=== PATIENT | female | born 1970 | race Caucasian/White ===

== ENCOUNTER → 2017-05-06 | Outpatient (REF) | payer OTHER ==
[2017-05-06 20:52] LABS: ALBUMIN 3.9 GM/DL (3.2-5.2); ALBUMIN/GLOBULIN RATIO 1.39 (1.00-1.93); ALKALINE PHOSPHATASE 46 U/L (45-117); ALT/SGPT 33 U/L (12-78); ANION GAP 7 MEQ/L (8-16); AST/SGOT 19 U/L (15-37); BILIRUBIN,TOTAL 0.2 MG/DL (0.2-1.0); BLOOD UREA NITROGEN 17 MG/DL (7-18); CALCIUM LEVEL 8.1 MG/DL (8.5-10.1); CARBON DIOXIDE LEVEL 29 MEQ/L (21-32); CHLORIDE LEVEL 103 MEQ/L (98-107); CHOLESTEROL LEVEL 194 MG/DL (<200); GLOMERULAR FILTRATION RATE > 60.0 (>58); GLUCOSE, FASTING 94 MG/DL (70-105); POTASSIUM SERUM 3.6 MEQ/L (3.5-5.1); SODIUM LEVEL 139 MEQ/L (136-145); TOTAL PROTEIN 6.7 GM/DL (6.4-8.2); TRIGLYCERIDES LEVEL 511 MG/DL (<150)
== END ==
LOC: M SFHCCLAY 10:47
PROVIDERS: ATTEND Family Medicine
DX: I10 Essential (primary) hypertension (principal); I44.0 Atrioventricular block, first degree; E78.2 Mixed hyperlipidemia

== ENCOUNTER → 2018-04-21 | Outpatient (REF) | payer OTHER | LOC: M SFHCCLAY 09:08 | DX: Z12.4 Encounter for screening for malignant neoplasm of cervix (principal) ==

== ENCOUNTER → 2018-05-12 | Outpatient (CLI) | payer OTHER | LOC: M CLY 08:07 | DX: R93.6 Abnormal findings on diagnostic imaging of limbs (principal); M25.512 Pain in left shoulder | CPT/HCPCS: 73030 ==

== ENCOUNTER → 2018-05-12 | Outpatient (REF) | payer OTHER ==
[2018-05-12 12:44] LABS: ALBUMIN/GLOBULIN RATIO 1.29 (1.00-1.93); ALKALINE PHOSPHATASE 59 U/L (45-117); ALT/SGPT 53 U/L (12-78); ANION GAP 6 MEQ/L (8-16); AST/SGOT 25 U/L (7-37); BILIRUBIN,TOTAL 0.3 MG/DL (0.2-1.0); BLOOD UREA NITROGEN 13 MG/DL (7-18); CALCIUM LEVEL 9.2 MG/DL (8.5-10.1); CARBON DIOXIDE LEVEL 31 MEQ/L (21-32); CHLORIDE LEVEL 103 MEQ/L (98-107); CHOLESTEROL LEVEL 213 MG/DL (<200); CHOLESTEROL RISK RATIO 5.325 (<5); CREATININE FOR GFR 0.65 MG/DL (0.55-1.30); GLOMERULAR FILTRATION RATE > 60.0 (>58); GLUCOSE, FASTING 94 MG/DL (70-100); HDL CHOLESTEROL 40 MG/DL (>40); NON-HDL-C 173 MG/DL; POTASSIUM SERUM 3.9 MEQ/L (3.5-5.1); SODIUM LEVEL 140 MEQ/L (136-145); TOTAL PROTEIN 7.1 GM/DL (6.4-8.2); TRIGLYCERIDES LEVEL 430 MG/DL (<150)
== END ==
LOC: M SFHCCLAY 07:52
DX: E78.2 Mixed hyperlipidemia (principal)
CPT/HCPCS: 80053

== ENCOUNTER → 2019-04-27 | Outpatient (REF) | payer OTHER | LOC: M SFHCCLAY 17:00 | PROVIDERS: ATTEND Nurse Practitioner Family | DX: Z12.4 Encounter for screening for malignant neoplasm of cervix (principal) ==

== ENCOUNTER → 2019-05-25 | Outpatient (REF) | payer OTHER ==
[2019-05-25 13:11] LABS: BASO % 0.7 % (0.0-1.0); EOS # 0.3 10^3/uL (0.0-0.5); EOS % 5.2 % (0.0-3.0); HEMATOCRIT 40.1 % (36.0-47.0); HEMOGLOBIN 13.4 g/dl (12.0-15.5); LYMPH # 1.7 10^3/uL (1.5-5.0); LYMPH % 30.1 % (24.0-44.0); MEAN CORPUSCULAR HEMOGLOBIN 29.9 pg (27.0-33.0); MEAN CORPUSCULAR HGB CONC 33.4 g/dl (32.0-36.5); MEAN CORPUSCULAR VOLUME 89.5 fl (80.0-96.0); MONO # 0.5 10^3/uL (0.0-0.8); MONO % 8.1 % (0.0-5.0); NEUTROPHILS # 3.2 10^3/uL (1.5-8.5); NEUTROPHILS % 55.4 % (36.0-66.0); PLATELET COUNT, AUTOMATED 275 10^3/uL (150-450); RED BLOOD COUNT 4.48 10^6/uL (4.00-5.40); WHITE BLOOD COUNT 5.8 10^3/uL (4.0-10.0)
[2019-05-25 13:33] LABS: ALBUMIN 4.1 GM/DL (3.2-5.2); ALT/SGPT 36 U/L (12-78); BILIRUBIN,TOTAL 0.4 MG/DL (0.2-1.0); BLOOD UREA NITROGEN 15 MG/DL (7-18); C REACTIVE PROTEIN QUANTITATIV < 0.30 MG/DL (0.00-0.30); CARBON DIOXIDE LEVEL 32 MEQ/L (21-32); CHLORIDE LEVEL 99 MEQ/L (98-107); CHOLESTEROL LEVEL 226 MG/DL (<200); CHOLESTEROL RISK RATIO 5.512 (<5); CREATININE FOR GFR 0.61 MG/DL (0.55-1.30); FOLATE 11.7 NG/ML (>5.4); GLOMERULAR FILTRATION RATE > 60.0 (>58); GLUCOSE, FASTING 87 MG/DL (70-100); HDL CHOLESTEROL 41 MG/DL (>40); MAGNESIUM LEVEL 2.2 MG/DL (1.8-2.4); NON-HDL-C 185 MG/DL; POTASSIUM SERUM 3.5 MEQ/L (3.5-5.1); RHEUMATOID FACTOR QUANT < 10.0 IU/ML (<15.0); SODIUM LEVEL 138 MEQ/L (136-145); THYROID STIMULATING HORMONE 0.808 uIU/ML (0.358-3.740); TOTAL PROTEIN 6.9 GM/DL (6.4-8.2); TRIGLYCERIDES LEVEL 522 MG/DL (<150)
[2019-05-25 13:52] LABS: ERYTHROCYTE SEDIMENTATION RATE 6 mm/hr (0-20)
[2019-05-25 15:44] LABS: VITAMIN B12 LEVEL 581 PG/ML (247-911)
[2019-05-27 00:06] LABS: ANA (HEP2) Negative (.); CYCLIC CITRULLINATED PEPTIDE 8 units (0-19); Lyme Disease IgG/IgM Antibodie <0.91 ISR (0.00-0.90); Lyme Disease IgM Ab Quantitati <0.80 index (0.00-0.79)
== END ==
LOC: M SFHCCLAY 08:57
PROVIDERS: ATTEND Family Medicine
DX: E78.2 Mixed hyperlipidemia (principal); I10 Essential (primary) hypertension; M25.512 Pain in left shoulder; M25.562 Pain in left knee; R20.2 Paresthesia of skin; R20.0 Anesthesia of skin; M25.50 Pain in unspecified joint

== ENCOUNTER → 2019-05-25 | Outpatient (CLI) | payer OTHER ==
--- NOTE | 2019-05-25 16:20 | REP ---
Five views left knee: 05/25/2019. Indication: Left knee pain. Comparison: None. Findings: There is no acute fracture, subluxation or dislocation. There is no evidence of significant joint effusion. Joint space height is maintained. Impression: No acute fracture. Electronically Signed by James Rosado DO 05/25/2019 04:11 P
== END ==
LOC: M CLY 09:10
PROVIDERS: ATTEND Family Medicine
DX: M25.562 Pain in left knee (principal)

== ENCOUNTER → 2019-12-17 | Outpatient (CLI) | payer OTHER ==
[~2019-12-17] MED LIST: PROHANCE 279.3MG/ML 15ML VIAL As Ordered ONE
--- NOTE | 2019-12-18 09:06 | REP ---
MRI STUDY OF THE BRAIN WITHOUT AND WITH IV CONTRAST: HISTORY: Bilateral facial numbness. Visual issues. Skin anesthesia. No comparison brain imaging. Gadolinium enhancement dose is 13.8 mL of intravenous ProHance. TECHNIQUE: Axial and sagittal imaging planes are utilized for T1- and T2-weighted scans. Sequences include spin-echo, fast spin echo, FLAIR, and diffusion weighted sequences. MRI FINDINGS: No bony calvarial lesion is seen. Craniocervical junction and upper cervical cord are normal in appearance. There is no MR evidence of significant paranasal sinus disease. No intraorbital abnormality is seen. The deep facial soft tissues are unremarkable. On turbo spin echo T2 and post rick images, there is evidence of a rounded flow void in the region of the anterior communicating artery just to the left of midline, 4 mm in diameter. This is suspicious for a possible umaña aneurysm. This merits further evaluation. No other vascular abnormality is seen. Diffusion weighted scans show no evidence of restricted diffusion to suggest acute ischemia. There is no evidence of intracranial mass or extra-axial fluid collection. There are a few scattered subcortical and periventricular white matter foci in the frontal lobes consistent with minimal small vessel changes. These are nonspecific and can be seen in migraine patients, less likely demyelinating disease. On postcontrast images, there is enhancement in normal vasculature. No abnormal intracranial contrast enhancement is seen. IMPRESSION: 1. 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 Recommend MR angiography of the brain. 2. Nonspecific scattered foci of T2 hyperintensity in the subcortical and periventricular white matter likely small vessel changes. 3. Otherwise negative MRI study of the brain without and with IV contrast. Electronically Signed by Carlos Thomas MD 12/18/2019 09:13 A
== END ==
LOC: M RAD 15:42
PROVIDERS: ATTEND Family Medicine
DX: R20.0 Anesthesia of skin (principal); M25.50 Pain in unspecified joint; H53.9 Unspecified visual disturbance; R90.89 Other abnormal findings on diagnostic imaging of central nervous system
CPT/HCPCS: 70553; A9576

== ENCOUNTER → 2019-12-25 | Outpatient (REF) | payer OTHER ==
[2019-12-25 17:20] LABS: BLOOD UREA NITROGEN 17 MG/DL (7-18); CALCIUM LEVEL 9.1 MG/DL (8.5-10.1); CARBON DIOXIDE LEVEL 31 MEQ/L (21-32); CHLORIDE LEVEL 103 MEQ/L (98-107); CREATININE FOR GFR 0.67 MG/DL (0.55-1.30); GLOMERULAR FILTRATION RATE > 60.0 (>58); GLUCOSE, FASTING 102 MG/DL (70-100); POTASSIUM SERUM 3.5 MEQ/L (3.5-5.1); SODIUM LEVEL 141 MEQ/L (136-145)
== END ==
LOC: M SFHCCLAY 13:04
PROVIDERS: ATTEND Family Medicine
DX: I67.1 Cerebral aneurysm, nonruptured (principal)

== ENCOUNTER → 2020-04-25 | Outpatient (CLI) | payer OTHER ==
--- NOTE | 2020-05-02 09:53 | REP ---
LEFT ELBOW SERIES: 4-VIEWS HISTORY: Left elbow pain. FINDINGS: Four views of the left elbow demonstrate normal alignment of the radiocapitellar and ulnotrochlear articulations. There is no evidence of joint effusion or erosive change. No soft tissue abnormality. IMPRESSION: Negative radiographs of the left elbow. MTDD
== END ==
LOC: M CLY 09:48
PROVIDERS: ATTEND Physician Assistant
DX: M25.522 Pain in left elbow (principal)

== ENCOUNTER → 2020-05-02 | Outpatient (REF) | payer OTHER | LOC: M SFHCCLAY 09:51 | PROVIDERS: ATTEND Nurse Practitioner Family | DX: Z01.419 Encounter for gynecological examination (general) (routine) without abnormal findings (principal) ==

== ENCOUNTER → 2020-05-30 | Outpatient (REF) | payer OTHER ==
[2020-05-30 16:11] LABS: BASO % 0.6 % (0.0-1.0); EOS # 0.2 10^3/uL (0.0-0.5); HEMOGLOBIN 12.9 g/dl (12.0-15.5); LYMPH # 1.8 10^3/uL (1.5-5.0); LYMPH % 32.7 % (24.0-44.0); MEAN CORPUSCULAR HEMOGLOBIN 29.8 pg (27.0-33.0); MEAN CORPUSCULAR HGB CONC 33.1 g/dl (32.0-36.5); MEAN CORPUSCULAR VOLUME 90.1 fl (80.0-96.0); MONO # 0.4 10^3/uL (0.0-0.8); MONO % 7.9 % (0.0-5.0); NEUTROPHILS % 55.6 % (36.0-66.0); PLATELET COUNT, AUTOMATED 286 10^3/uL (150-450); RED BLOOD COUNT 4.33 10^6/uL (4.00-5.40); WHITE BLOOD COUNT 5.4 10^3/uL (4.0-10.0)
[2020-05-30 16:12] LABS: ALT/SGPT 36 U/L (12-78); BILIRUBIN,TOTAL 0.5 MG/DL (0.2-1.0); BLOOD UREA NITROGEN 17 MG/DL (7-18); CALCIUM LEVEL 9.3 MG/DL (8.5-10.1); CARBON DIOXIDE LEVEL 30 MEQ/L (21-32); CHLORIDE LEVEL 103 MEQ/L (98-107); CHOLESTEROL LEVEL 195 MG/DL (<200); CHOLESTEROL RISK RATIO 5.416 (<5); CREATININE FOR GFR 0.62 MG/DL (0.55-1.30); GLOMERULAR FILTRATION RATE > 60.0 (>58); GLUCOSE, FASTING 94 MG/DL (70-100); HDL CHOLESTEROL 36 MG/DL (>40); LDL CHOLESTEROL 83 MG/DL (<100); NON-HDL-C 159 MG/DL; POTASSIUM SERUM 3.4 MEQ/L (3.5-5.1); SODIUM LEVEL 139 MEQ/L (136-145); TRIGLYCERIDES LEVEL 380 MG/DL (<150)
[2020-05-30 16:13] LABS: ALBUMIN 4.2 GM/DL (3.2-5.2); TOTAL PROTEIN 7.1 GM/DL (6.4-8.2)
== END ==
LOC: M SFHCCLAY 11:08
PROVIDERS: ATTEND Family Medicine
DX: I10 Essential (primary) hypertension (principal); E78.2 Mixed hyperlipidemia

== ENCOUNTER → 2021-02-04 | Outpatient (CLI) | payer OTHER ==
--- NOTE | 2021-02-04 13:22 | REPVR ---
PROCEDURE INFORMATION: Exam: MRA Head Without Contrast; Arteriography Exam date and time: 02/04/2021 10:16 AM Age: 50 years old Clinical indication: Condition or disease; Aneurysm, cerebral; Additional info: Aneursym TECHNIQUE: Imaging protocol: Magnetic resonance angiography head without contrast. Exam focused on the arteries. COMPARISON: MRI-Brain W/O FOLL BY WITH 12/17/2019 5:03 PM FINDINGS: ANTERIOR CIRCULATION: Right internal carotid artery: No occlusion or significant stenosis intracranially. No aneurysm intracranially. Abnormal appearance of the visualized distal cervical right ICA which demonstrates a luminal diameter of approximately 6.9 mm compared to a distal diameter of 3.7 mm. Right ICA proximal to the measured dilatation is not imaged. Right middle cerebral artery: No occlusion or significant stenosis. No aneurysm. Right anterior cerebral artery: No occlusion or significant stenosis. 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 The neck measures approximately 3 mm on the source data, image 110 series 201. The dome height is approximately 4.1 mm. The dome width is approximately 4.0 mm, image 1 series 204. Left internal carotid artery: Intracranial segment is patent with no significant stenosis. No aneurysm. Left middle cerebral artery: No occlusion or significant stenosis. No aneurysm. Left anterior cerebral artery: No occlusion or significant stenosis. POSTERIOR CIRCULATION: Right vertebral artery: No occlusion or significant stenosis. No aneurysm. Left vertebral artery: No occlusion or significant stenosis. No aneurysm. Basilar artery: No occlusion or significant stenosis. No aneurysm. Right posterior cerebral artery: No occlusion or significant stenosis. No aneurysm. Left posterior cerebral artery: No occlusion or significant stenosis. No aneurysm. IMPRESSION: 1. 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 2. Recommend MRA or CTA neck to assess the cervical right ICA which appears aneurysmal. Electronically signed by: Gita See On 02/04/2021 13:21:56 PM
== END ==
LOC: M RAD 09:51
PROVIDERS: ATTEND Neurological Surgery
DX: I67.1 Cerebral aneurysm, nonruptured (principal)

== ENCOUNTER → 2021-06-05 | Outpatient (REF) | payer OTHER ==
[2021-06-05 16:50] LABS: BASO % 0.7 % (0.0-1.0); EOS # 0.4 10^3/uL (0.0-0.5); EOS % 6.6 % (0.0-3.0); HEMATOCRIT 41.1 % (36.0-47.0); HEMOGLOBIN 13.6 g/dl (12.0-15.5); LYMPH # 1.8 10^3/uL (1.5-5.0); LYMPH % 31.8 % (24.0-44.0); MEAN CORPUSCULAR HEMOGLOBIN 29.8 pg (27.0-33.0); MEAN CORPUSCULAR HGB CONC 33.1 g/dl (32.0-36.5); MEAN CORPUSCULAR VOLUME 90.1 fl (80.0-96.0); MONO # 0.5 10^3/uL (0.0-0.8); MONO % 7.8 % (2.0-8.0); NEUTROPHILS # 3.1 10^3/uL (1.5-8.5); NEUTROPHILS % 52.8 % (36.0-66.0); PLATELET COUNT, AUTOMATED 262 10^3/uL (150-450); RED BLOOD COUNT 4.56 10^6/uL (4.00-5.40); WHITE BLOOD COUNT 5.8 10^3/uL (4.0-10.0)
[2021-06-05 17:07] LABS: ALBUMIN 4.2 GM/DL (3.2-5.2); ALT/SGPT 36 U/L (12-78); BILIRUBIN,TOTAL 0.3 MG/DL (0.2-1.0); BLOOD UREA NITROGEN 21 MG/DL (7-18); CALCIUM LEVEL 9.8 MG/DL (8.5-10.1); CARBON DIOXIDE LEVEL 26 MEQ/L (21-32); CHLORIDE LEVEL 105 MEQ/L (98-107); CHOLESTEROL LEVEL 243 MG/DL (<200); CHOLESTEROL RISK RATIO 6.942 (<5); CREATININE FOR GFR 0.59 MG/DL (0.55-1.30); FOLATE 10.6 NG/ML (>5.4); GLOMERULAR FILTRATION RATE > 60.0 (>51); GLUCOSE, FASTING 93 MG/DL (70-100); HDL CHOLESTEROL 35 MG/DL (>40); MAGNESIUM LEVEL 2.3 MG/DL (1.8-2.4); NON-HDL-C 208 MG/DL; POTASSIUM SERUM 4.2 MEQ/L (3.5-5.1); SODIUM LEVEL 139 MEQ/L (136-145); TOTAL PROTEIN 7.3 GM/DL (6.4-8.2); TRIGLYCERIDES LEVEL 539 MG/DL (<150); VITAMIN B12 LEVEL 1075 PG/ML (247-911)
== END ==
LOC: M SFHCCLAY 10:22
PROVIDERS: ATTEND Family Medicine
DX: G62.9 Polyneuropathy, unspecified (principal); E78.2 Mixed hyperlipidemia; I10 Essential (primary) hypertension

== ENCOUNTER → 2021-10-03 | Outpatient (CLI) | payer OTHER | LOC: M RAD 15:47 | PROVIDERS: ATTEND Neurological Surgery | DX: I67.1 Cerebral aneurysm, nonruptured (principal) ==

== ENCOUNTER → 2022-04-26 | Outpatient (CLI) | payer OTHER | LOC: M PLARAD 14:33 | PROVIDERS: ATTEND Podiatrist | DX: M21.072 Valgus deformity, not elsewhere classified, left ankle (principal); M79.672 Pain in left foot ==

== ENCOUNTER → 2022-09-19 | Outpatient (CLI) | payer OTHER | LOC: M RAD 08:55 | PROVIDERS: ATTEND Neurological Surgery | DX: I67.1 Cerebral aneurysm, nonruptured (principal) ==

== ENCOUNTER → 2023-05-27 | Outpatient (REF) | payer OTHER ==
[2023-05-27 19:08] LABS: HEMOGLOBIN A1c 5.5 % (4.0-6.0)
[2023-05-27 19:13] LABS: ALKALINE PHOSPHATASE 61 U/L (46-116); ALT/SGPT 20 U/L (7.0-40); AST/SGOT 13 U/L (<34); BILIRUBIN,TOTAL 0.4 MG/DL (0.3-1.2); BLOOD UREA NITROGEN 17 MG/DL (9-23); CALCIUM LEVEL 9.6 MG/DL (8.5-10.1); CARBON DIOXIDE LEVEL 30 MMOL/L (20-31); CHLORIDE LEVEL 103 MMOL/L (98-107); CREATININE FOR GFR 0.58 MG/DL (0.55-1.30); GLOMERULAR FILTRATION RATE > 60.0 (>51); GLUCOSE, FASTING 74 MG/DL (60-100); POTASSIUM SERUM 4.1 MMOL/L (3.5-5.1); SODIUM LEVEL 139 MMOL/L (136-145); TOTAL PROTEIN 6.6 G/DL (5.7-8.2)
== END ==
LOC: M SFHCCLAY 10:33
PROVIDERS: ATTEND Family Medicine
DX: R73.01 Impaired fasting glucose (principal)

== ENCOUNTER → 2023-12-02 | Outpatient (REF) | payer OTHER ==
[2023-12-02 18:21] LABS: HEMATOCRIT 42.2 % (36.0-47.0); MEAN CORPUSCULAR HEMOGLOBIN 29.4 pg (27.0-33.0); MEAN CORPUSCULAR HGB CONC 33.2 g/dl (32.0-36.5); MEAN CORPUSCULAR VOLUME 88.5 fl (80.0-96.0); PLATELET COUNT, AUTOMATED 281 10^3/uL (150-450); RED BLOOD COUNT 4.77 10^6/uL (4.00-5.40); WHITE BLOOD COUNT 6.8 10^3/uL (4.0-10.0)
[2023-12-02 18:48] LABS: HEMOGLOBIN A1c 5.6 % (4.0-6.0)
[2023-12-02 18:59] LABS: ALBUMIN 4.1 G/DL (3.2-5.2); ALKALINE PHOSPHATASE 67 U/L (46-116); ALT/SGPT 26 U/L (7.0-40); AST/SGOT 14 U/L (<34); BILIRUBIN,TOTAL 0.2 MG/DL (0.3-1.2); BLOOD UREA NITROGEN 15 MG/DL (9-23); CALCIUM LEVEL 9.9 MG/DL (8.5-10.1); CARBON DIOXIDE LEVEL 29 MMOL/L (20-31); CHLORIDE LEVEL 103 MMOL/L (98-107); CHOLESTEROL LEVEL 244 MG/DL (<200); CHOLESTEROL RISK RATIO 6.06 (<5); CREATININE FOR GFR 0.61 MG/DL (0.55-1.30); FREE T4 1.28 NG/DL (0.89-1.76); GLOMERULAR FILTRATION RATE > 60.0 (>51); GLUCOSE, FASTING 105 MG/DL (60-100); HDL CHOLESTEROL 40.2 MG/DL (>40); NON-HDL-C 203.8 MG/DL; POTASSIUM SERUM 4.2 MMOL/L (3.5-5.1); SODIUM LEVEL 138 MMOL/L (136-145); TOTAL PROTEIN 6.6 G/DL (5.7-8.2); TRIGLYCERIDES LEVEL 657 MG/DL (<150)
== END ==
LOC: M SFHCCLAY 10:22
PROVIDERS: ATTEND Family Medicine
DX: I10 Essential (primary) hypertension (principal); R73.01 Impaired fasting glucose; E78.2 Mixed hyperlipidemia

== ENCOUNTER → 2024-11-30 | Outpatient (REF) | payer OTHER ==
[2024-11-30 18:29] LABS: HEMATOCRIT 42.9 % (36.0-47.0); HEMOGLOBIN 14.4 g/dl (12.0-15.5); MEAN CORPUSCULAR HEMOGLOBIN 29.3 pg (27.0-33.0); MEAN CORPUSCULAR HGB CONC 33.6 g/dl (32.0-36.5); MEAN CORPUSCULAR VOLUME 87.2 fl (80.0-96.0); PLATELET COUNT, AUTOMATED 250 10^3/uL (150-450); RED BLOOD COUNT 4.92 10^6/uL (4.00-5.40); WHITE BLOOD COUNT 5.8 10^3/uL (4.0-10.0)
[2024-11-30 18:30] LABS: FREE T4 1.05 NG/DL (0.89-1.76); THYROID STIMULATING HORMONE 0.626 uIU/ML (0.55-4.78)
[2024-11-30 18:35] LABS: ALBUMIN 4.2 G/DL (3.2-5.2); ALKALINE PHOSPHATASE 59 U/L (35-104); ALT/SGPT 49 U/L (7.0-40); AST/SGOT 24 U/L (<34); BILIRUBIN,TOTAL 0.3 MG/DL (0.3-1.2); BLOOD UREA NITROGEN 20 MG/DL (9-23); CALCIUM LEVEL 9.5 MG/DL (8.5-10.1); CARBON DIOXIDE LEVEL 28 MMOL/L (20-31); CHLORIDE LEVEL 102 MMOL/L (98-107); CHOLESTEROL LEVEL 209 MG/DL (<200); CREATININE FOR GFR 0.53 MG/DL (0.55-1.30); GLOMERULAR FILTRATION RATE > 90.0 (>51); GLUCOSE, FASTING 94 MG/DL (60-100); MAGNESIUM LEVEL 1.9 MG/DL (1.8-2.4); POTASSIUM SERUM 4.1 MMOL/L (3.5-5.1); SODIUM LEVEL 138 MMOL/L (136-145); TOTAL PROTEIN 6.9 G/DL (5.7-8.2); TRIGLYCERIDES LEVEL 1411 MG/DL (<150)
[2024-11-30 18:44] LABS: HEMOGLOBIN A1c 5.9 % (4.0-6.0)
== END ==
LOC: M SFHCCLAY 10:13
PROVIDERS: ATTEND Family Medicine
DX: E78.2 Mixed hyperlipidemia (principal); I10 Essential (primary) hypertension; R73.01 Impaired fasting glucose

== ENCOUNTER → 2025-02-19 | Outpatient (CLI) | payer OTHER | LOC: M PLAIMG 06:45 | PROVIDERS: ATTEND Neurological Surgery | DX: I67.1 Cerebral aneurysm, nonruptured (principal) ==

== ENCOUNTER → 2025-05-31 | Outpatient (REF) | payer OTHER ==
[2025-05-31 18:49] LABS: BASO # 0.1 10^3/uL (0.0-0.2); BASO % 0.8 % (0.0-1.0); EOS # 0.3 10^3/uL (0.0-0.5); EOS % 4.5 % (0.0-3.0); LYMPH # 1.2 10^3/uL (1.5-5.0); LYMPH % 19.3 % (24.0-44.0); MONO # 0.4 10^3/uL (0.0-0.8); MONO % 6.8 % (2.0-8.0); NEUTROPHILS # 4.2 10^3/uL (1.5-8.5); NEUTROPHILS % 68.4 % (36.0-66.0); PLATELET COUNT, AUTOMATED 304 10^3/uL (150-450)
[2025-05-31 18:51] LABS: ALT/SGPT 24 U/L (7.0-40); AST/SGOT 18 U/L (<34); C REACTIVE PROTEIN QUANTITATIV < 0.50 MG/DL (<1.0); CALCIUM LEVEL 9.2 MG/DL (8.5-10.1); CARBON DIOXIDE LEVEL 28 MMOL/L (20-31); CHLORIDE LEVEL 103 MMOL/L (98-107); CHOLESTEROL LEVEL 156 MG/DL (<200); CHOLESTEROL RISK RATIO 3.19 (<5); CREATININE FOR GFR 0.71 MG/DL (0.55-1.30); GLOMERULAR FILTRATION RATE > 90.0 (>51); LDL CHOLESTEROL 81.5 MG/DL (<100); NON-HDL-C 107.1 MG/DL; POTASSIUM SERUM 4.1 MMOL/L (3.5-5.1); RHEUMATOID FACTOR QUANT < 3.5 IU/ML (<14); SODIUM LEVEL 139 MMOL/L (136-145); TRIGLYCERIDES LEVEL 128 MG/DL (<150)
[2025-06-04 11:22] LABS: ANTI DS-DNA AB Negative (Negative)
[2025-06-04 20:13] LABS: LYME TOTAL ANTIBODY CIA <= 0.90 Index (<=0.90)
[2025-06-07 12:18] LABS: HLA-B27 Negative (Negative)
== END ==
LOC: M SFHCCLAY 11:22
PROVIDERS: ATTEND Family Medicine
DX: E78.2 Mixed hyperlipidemia (principal); M25.521 Pain in right elbow; M25.522 Pain in left elbow; M25.531 Pain in right wrist; L98.9 Disorder of the skin and subcutaneous tissue, unspecified